=== PATIENT | female | born 1935 | race Caucasian/White ===

== ENCOUNTER 2024-04-28 16:07 | Observation (INO) ==
[2024-04-28 16:16] VITALS: TEMP 97.5
[2024-04-28] MEDS: PANTOPRAZOLE 40 MG VIAL IV ONE (16:30)
[2024-04-28 16:50] LABS: INR 1.7 (0.9-1.1); Prothrombin Time 20.3 sec (11.9-14.5)
[2024-04-28 16:59] LABS: ALT/SGPT 20 U/L (<40); AST/SGOT 30 U/L (<32); Albumin 2.8 gm/dL (3.2-5.2); Alkaline Phosphatase 108 U/L (39-117); Bilirubin,Total 0.4 mg/dL (0.1-1.0); Blood Urea Nitrogen 55 mg/dL (8-23); Calcium 7.4 mg/dL (8.6-10.4); Carbon Dioxide 18 mmol/L (22-30); Chloride 92 mmol/L (96-108); Globulin 2.9 gm/dL (2.2-3.7); Glomerular Filtration Rate 10; Glucose 159 mg/dL (70-105); Potassium 4.1 mmol/L (3.3-5.1); Sodium 133 mmol/L (133-145)
[2024-04-28 17:01] LABS: Basophils # (Auto) 0.04 K/mcL (0.00-0.30); Basophils % (Auto) 0.2 % (0.0-2.0); Eosinophils # (Auto) 0.14 K/mcL (0.00-0.70); Eosinophils % (Auto) 0.7 % (0.0-7.0); Hematocrit 16.6 % (34.1-44.9); Hemoglobin 5.4 g/dL (11.2-15.7); Lymphocytes # (Auto) 2.04 K/mcL (1.50-4.80); Lymphocytes % (Auto) 10.6 % (15.5-49.0); Mean Cell Volume 93.8 fL (80.0-100.0); Mean Corpuscular HGB Conc 32.5 g/dL (31.0-36.0); Mean Platelet Volume 10.3 fL (8.8-12.5); Monocytes # (Auto) 1.03 K/mcL (0.10-0.90); Monocytes % (Auto) 5.4 % (1.0-12.0); Platelet Count 226 K/mcL (140-440); RBC 1.77 M/mcL (3.59-5.38); Red Cell Distribution Width 16.8 % (11.5-14.5); WBC 19.2 K/mcL (4.5-11.0)
[2024-04-28] MEDS: 0.9 % SODIUM CHLORIDE 500 ML IV ONE ×2 (17:08→17:51)
[2024-04-28] MEDS: ONDANSETRON 4 MG/2 ML VIAL ONE (17:14)
[2024-04-28] MEDS: ONDANSETRON 4 MG/2 ML VIAL IV ONE ×2 (17:14→17:51)
[2024-04-28] MEDS: 0.9 % SODIUM CHLORIDE 250 ML IV SCH (17:31)
[2024-04-28 17:51] LABS: ABG Methemoglobin 0.3 % (0.4-1.5); Total Hemoglobin 6.4 gm/Dl (12.0-15.0); VBG Base Excess -6 (-2-3); VBG HCO3 18.4 mmol/L (24.0-28.0); VBG Oxygen Saturation 84.1 % (40.0-70.0); VBG PCO2 31.3 mmHg (41.0-51.0); VBG PH 7.39 U (7.32-7.42); VBG PO2 86.3 mmHg (25.0-40.0); VBG Total CO2 19.4 mmol/L (25.0-29.0)
[2024-04-28] MEDS: PIPERACILLIN SODIUM/TAZOBACTAM 3.375 GM in DEXTROSE 5% IN WATER 50 ML IV ONE (17:51)
[2024-04-28] MEDS: EMPTYBAG IV ONE ×2 (18:21→18:38)
[2024-04-28] MEDS: [UNRECOGNIZED DRUG - OTHER] IV ONE (18:21)
[2024-04-28] MEDS: [UNRECOGNIZED DRUG - OTHER] IV ONE (18:38)
[2024-04-28] MEDS: fentaNYL 100 MCG/2 ML VIAL IV ONE ×2 (19:34→21:09)
[2024-04-28] MEDS: 0.9 % SODIUM CHLORIDE 1,000 ML IV ONE (20:07)
[2024-04-28] MEDS ORDERED: ACETAMINOPHEN 325 MG TABLET PO PRN (21:54)
[2024-04-28] MEDS ORDERED: ONDANSETRON 4 MG/2 ML VIAL IV PRN ×2 (21:54)
[2024-04-28] MEDS ORDERED: ALBUTEROL SULFATE 2.5 MG/3 ML NEBULIZER NEB PRN (21:54)
[2024-04-28] MEDS ORDERED: DOCUSATE SODIUM 100 MG CAPSULE PO SCH (21:54)
[2024-04-28] MEDS: 0.9 % SODIUM CHLORIDE 10 ML SYRINGE IV SCH ×2 (22:04)
[2024-04-28] MEDS: SENNOSIDES 1 TABLET PO SCH (22:04)
[2024-04-28] MEDS: DOCUSATE SODIUM 100 MG CAPSULE PO SCH (22:04)
[2024-04-28] MEDS: LORazepam 2 MG/ML VIAL IV PRN (22:17)
[2024-04-29] MEDS: morphine 4 MG/ML VIAL IV PRN (00:23)
[2024-04-29 03:26] VITALS: O2SAT 86
== END 2024-04-29 11:30 | disposition expired ==
LOC: MEDSUR 16:07 → ED 16:07 → MEDSUR 21:53
PROVIDERS: ADMIT Internal Medicine; ATTEND Internal Medicine